=== PATIENT | male | born 1975 | race American Indian/Alaskan Native ===

== ENCOUNTER 2017-01-13 01:34 | Emergency (ER) | payer MEDICAID ==
[2017-01-13 01:43] VITALS: O2SAT 99
[2017-01-13] MEDS ORDERED: Sodium Chloride 0.9% 1,000 ML IV STA ×2 (02:07→02:37)
[2017-01-13 02:27] LABS: CHLORIDE 105 mmol/L (98-107); SODIUM 142 mmol/l (132-148)
[2017-01-13 02:28] LABS: POTASSIUM 3.6 MMOL/L (3.6-5.0)
[2017-01-13 02:30] LABS: ALB/GLOB RATIO 1.4 (1.0-2.1); ALKALINE PHOSPHATASE 62 U/L (38-126); ALT/SGPT 47 U/L (21-72); AST/SGOT 28 U/L (17-59); BILIRUBIN,TOTAL 0.7 mg/dl (0.2-1.3); BLOOD UREA NITROGEN 14 mg/dl (9-20); CARBON DIOXIDE 25 mmol/L (22-30); GFR AFRICAN-AMERICAN > 60; GLUCOSE,RANDOM 131 mg/dL (75-110); TOTAL PROTEIN 7.5 G/DL (6.3-8.2)
[2017-01-13 02:31] LABS: CALCIUM 9.3 mg/dL (8.4-10.2); LIPASE 71 U/L (23-300)
--- NOTE | 2017-01-13 02:31 | ED PDOC ---
HPI: Abdomen Time Seen by Provider: 01/13/17 01:47 Chief Complaint (Nursing): Abdominal Pain Chief Complaint (Provider): Abdominal Pain History Per: Patient History/Exam Limitations: no limitations Onset/Duration Of Symptoms: Days (Twenty-four hours) Outside of [place] travel?: No Current Symptoms Are (Timing): Still Present Severity: Mild Location Of Pain/Discomfort: Diffuse Quality Of Discomfort: Cramping Associated Symptoms: Nausea, Vomiting. denies: Fever, Chills, Diarrhea, Constipation Additional Complaint(s): 41 y/o male presenting to the ED with nausea, vomiting and abdominal pain. Patient states the symptoms began twenty-four hours ago and reports four episode of vomiting which was yellow colored and had no blood present. Patient describes the pain as cramping and states it is diffuse. He reports normal bowel movements, no fever, chills or past abdominal surgeries. Past Medical History Reviewed: Historical Data, Nursing Documentation, Vital Signs Vital Signs: Last Vital Signs Temp 98.3 F 01/13/17 01:40 Pulse 54 L 01/13/17 01:40 Resp 14 01/13/17 01:40 BP 127/75 01/13/17 01:40 Pulse Ox 99 01/13/17 05:18 - Medical History PMH: Back Problems - Family History Family History: States: Unknown Family Hx - Social History Current smoker - smoking cessation education provided: No Alcohol: None Drugs: Denies - Home Medications Home Medications: Ambulatory Orders Medication Instructions Recorded Dicyclomine [Bentyl] 10 mg PO QID #20 cap 01/13/17 Ibuprofen [Motrin Tab] 600 mg PO Q6 #30 tab 01/13/17 Ondansetron [Zofran] 4 mg PO Q8H #12 tab 01/13/17 - Allergies Allergies/Adverse Reactions: Allergies Allergy/AdvReac Type Severity Reaction Status Date / Time No Known Allergies Allergy Verified 01/13/17 01:40 Review of Systems ROS Statement: Except As Marked, All Systems Reviewed And Found Negative Constitutional: Negative for: Fever, Chills Gastrointestinal: Positive for: Vomiting, Abdominal Pain ((+)Diffuse). Negative for: Diarrhea, Constipation Physical Exam - Reviewed Nursing Documentation Reviewed: Yes Vital Signs Reviewed: Yes - Physical Exam Appears: Positive for: Non-toxic, Uncomfortable Head Exam: Positive for: ATRAUMATIC, NORMAL INSPECTION, NORMOCEPHALIC Skin: Positive for: Normal Color, Warm, Dry Cardiovascular/Chest: Positive for: Regular Rate, Rhythm. Negative for: Murmur Respiratory: Positive for: Normal Breath Sounds. Negative for: Wheezing, Respiratory Distress Gastrointestinal/Abdominal: Positive for: Soft. Negative for: Tenderness, Guarding, Rebound Neurologic/Psych: Positive for: Alert, Oriented. Negative for: Motor/Sensory Deficits - Laboratory Results Result Diagrams: 01/13/17 02:14 01/13/17 02:14 - ECG O2 Sat by Pulse Oximetry: 99 (RA) Pulse Ox Interpretation: Normal Medical Decision Making Medical Decision Making: Time: 205 Initial impression: Gastritis Initial plan: --CMP --LIPASE --CBC --DICYCLOMINE 20MG PO --SODIUM CHLORIDE 1,000ML IV 1,000 MLS/HR --ONDANSETRON 4MG IVP --URINALYSIS 0500: Discharge Instructions: Re-evaluation. Patient feels better. Discussed results and plan with patient who expresses understanding. Counseling was provided regarding the diagnosis and prognosis. All questions answered and there is agreement with the plan to discharge home with instructions. Patient stable for discharge. Return if symptoms persist or worsen. Scribe Attestation: Documented by Arina Jones, acting as a scribe for Tino Henriquez MD. Scribe Attestation: All medical record entries made by the Scribe were at my direction and personally dictated by me. I have reviewed the chart and agree that the record accurately reflects my personal performance of the history, physical exam, medical decision making, and the department course for this patient. I have also personally directed, reviewed, and agree with the discharge instructions and disposition. Disposition - Clinical Impression Clinical Impression: Abdominal cramps - Patient ED Disposition Is Patient to be Admitted: No - Disposition Referrals: [facility] [Outside] Disposition Time: 05:00 Condition: STABLE Prescriptions: Dicyclomine [Bentyl] 10 mg PO QID #20 cap Ibuprofen [Motrin Tab] 600 mg PO Q6 #30 tab Ondansetron [Zofran] 4 mg PO Q8H #12 tab Instructions: Acute Abdominal Pain (ED) Forms: [employer] (Belizean)
[2017-01-13 02:32] LABS: BASO % 0.3 % (0.0-2.0); EOS # 0.2 K/uL (0.0-0.7); EOS % 1.8 % (0.0-4.0); HEMATOCRIT 46.2 % (35.0-51.0); LYMPH # 2.3 K/uL (1.0-4.3); MEAN CELL VOLUME 91.2 fl (80.0-94.0); MEAN CORPUSCULAR HEMOGLOBIN 30.8 pg (27.0-31.0); MEAN CORPUSCULAR HGB CONC 33.8 g/dL (33.0-37.0); MEAN PLATELET VOLUME 11.5 fl (7.2-11.7); MONO # 0.9 K/uL (0.0-0.8); MONO % 7.3 % (0.0-10.0); NEUT # 9.3 K/uL (1.8-7.0); NEUT % 72.6 % (50.0-75.0); NRBC % 0.1 % (0.0-0.0); RED CELL DISTRIBUTION WIDTH 13.6 % (11.5-14.5); WHITE BLOOD COUNT 12.8 K/uL (4.8-10.8)
[2017-01-13 03:31] LABS: RBC URINE 8 /hpf (0-3); URINE BACTERIA RARE (<OCC); URINE BILIRUBIN NEGATIVE (NEGATIVE); URINE COLOR YELLOW (YELLOW); URINE GLUCOSE (UA) NEG (Normal); URINE KETONE 20 mg/dL (NEGATIVE); URINE LEUKOCYTE ESTERASE NEG Leu/uL (Negative); URINE PROTEIN 30 mg/dL (NEGATIVE); URINE UROBILINOGEN 0.2-1.0 mg/dL (0.2-1.0); WBC URINE 2 /hpf (0-5)
[2017-01-13 03:35] LABS: URINE BLOOD SMALL (NEGATIVE)
[2017-01-13 06:42] VITALS: BP 117/76; PULSE 86; RESP 17; TEMP 98.7
== END 2017-01-13 05:10 | disposition home or self-care (01) ==
LOC: H.ER 01:34
DX: K29.70 Gastritis, unspecified, without bleeding (principal)

== ENCOUNTER 2018-11-14 19:18 | Emergency (ER) | payer MEDICAID ==
[2018-11-14 19:44] VITALS: O2SAT 98
[2018-11-14] MEDS ORDERED: Sodium Chloride 0.9% 1,000 ML IV STA (19:52)
[2018-11-14 20:51] LABS: BASO # 0.1 K/uL (0.0-0.2); BASO % 0.6 % (0.0-2.0); EOS # 0.1 K/uL (0.0-0.7); EOS % 1.2 % (0.0-4.0); HEMOGLOBIN 15.9 g/dL (12.0-18.0); LYMPH # 1.7 K/uL (1.0-4.3); LYMPH % 16.9 % (20.0-40.0); MEAN CORPUSCULAR HEMOGLOBIN 31.3 pg (27.0-31.0); MEAN CORPUSCULAR HGB CONC 34.1 g/dL (33.0-37.0); MEAN PLATELET VOLUME 12.6 fl (7.2-11.7); MONO # 0.6 K/uL (0.0-0.8); MONO % 6.3 % (0.0-10.0); NEUT # 7.5 K/uL (1.8-7.0); NRBC % 0.1 % (0.0-0.0); RBC 5.09 Mil/uL (4.40-5.90)
[2018-11-14 21:04] LABS: ALB/GLOB RATIO 1.4 (1.0-2.1); ALBUMIN 4.5 g/dL (3.5-5.0); BLOOD UREA NITROGEN 14 mg/dl (9-20); GFR NON-AFRICAN AMERICAN > 60; LIPASE 71 U/L (23-300)
[2018-11-14 21:08] LABS: ALT/SGPT 49 U/L (21-72); AST/SGOT 45 U/L (17-59)
--- NOTE | 2018-11-14 21:21 | ED PDOC ---
HPI: Abdomen Time Seen by Provider: 11/14/18 19:51 Chief Complaint (Nursing): Abdominal Pain Chief Complaint (Provider): Abdominal Pain History Per: Patient History/Exam Limitations: no limitations Onset/Duration Of Symptoms: Hrs Additional Complaint(s): 43 year old male with chronic back pain presents to ED with abdominal pain and vomiting since about 10 am today. Patient reports multiple episodes of non bloody vomiting and is dry heaving now. He denies any diarrhea, fever, cough. Patient states he may have ate something that upset stomach. PMD: Ainsley Balderas Past Medical History Reviewed: Historical Data, Nursing Documentation, Vital Signs Vital Signs: Last Vital Signs Temp 98.3 F 11/14/18 19:42 Pulse 57 L 11/14/18 19:42 Resp 16 11/14/18 19:42 BP 135/89 11/14/18 19:42 Pulse Ox 98 11/14/18 19:42 Primary Care Provider: Ainsley Balderas - Medical History PMH: Back Problems - Surgical History Surgical History: No Surg Hx - Family History Family History: States: Unknown Family Hx - Social History Current smoker - smoking cessation education provided: No Alcohol: Occasional Drugs: Denies - Home Medications Home Medications: Ambulatory Orders Medication Instructions Recorded Dicyclomine [Bentyl] 10 mg PO QID #20 cap 01/13/17 Ibuprofen [Motrin Tab] 600 mg PO Q6 #30 tab 01/13/17 Ondansetron [Zofran] 4 mg PO Q8H #12 tab 01/13/17 Esomeprazole Magnesium [Nexium] 20 mg PO QAM #14 ecc 11/15/18 Ondansetron ODT [Zofran ODT] 4 mg PO Q6 PRN #8 odt 11/15/18 - Allergies Allergies/Adverse Reactions: Allergies Allergy/AdvReac Type Severity Reaction Status Date / Time No Known Allergies Allergy Verified 01/13/17 01:40 Review of Systems ROS Statement: Except As Marked, All Systems Reviewed And Found Negative Constitutional: Negative for: Fever Respiratory: Negative for: Cough Gastrointestinal: Positive for: Vomiting (non bloody, now dry heaving), Abdominal Pain. Negative for: Diarrhea Physical Exam - Reviewed Nursing Documentation Reviewed: Yes Vital Signs Reviewed: Yes - Physical Exam Appears: Positive for: No Acute Distress Head Exam: Positive for: ATRAUMATIC, NORMAL INSPECTION, NORMOCEPHALIC Skin: Positive for: Normal Color, Warm, Dry Eye Exam: Positive for: EOMI, Normal appearance, PERRL ENT: Positive for: Normal ENT Inspection Neck: Positive for: Normal, Painless ROM, Supple Cardiovascular/Chest: Positive for: Regular Rate, Rhythm. Negative for: Murmur Respiratory: Positive for: Normal Breath Sounds. Negative for: Respiratory Distress Gastrointestinal/Abdominal: Positive for: Tenderness (RUQ) Back: Positive for: Normal Inspection. Negative for: L CVA Tenderness, R CVA Tenderness, Vertebral Tenderness Extremity: Positive for: Normal ROM. Negative for: Pedal Edema, Deformity Neurological/Psych: Positive for: Awake, Alert, Oriented (x3). Negative for: Motor/Sensory Deficits - Laboratory Results Result Diagrams: 11/14/18 20:40 11/14/18 20:40 Lab Results: Total Bilirubin 0.6 mg/dl (0.2-1.3) 11/14/18 20:40 AST 45 U/L (17-59) 11/14/18 20:40 ALT 49 U/L (21-72) 11/14/18 20:40 Alkaline Phosphatase 51 U/L (38-126) 11/14/18 20:40 Total Protein 7.8 G/DL (6.3-8.2) 11/14/18 20:40 Albumin 4.5 g/dL (3.5-5.0) 11/14/18 20:40 Globulin 3.2 gm/dL (2.2-3.9) 11/14/18 20:40 Albumin/Globulin Ratio 1.4 (1.0-2.1) 11/14/18 20:40 Lipase 71 U/L (23-300) 11/14/18 20:40 - ECG O2 Sat by Pulse Oximetry: 98 (RA) Pulse Ox Interpretation: Normal Medical Decision Making Medical Decision Making: Time: 2035 Initial Impression: abdominal pain and vomiting Initial Plan: --U-dip --Pepcid --Zofran --IV Fluids --Urinalysis --US Gallbladder 00:46 US Findings: Hepatomegaly measuring 17.9 cm. Normal gallbladder wall thickness measuring 1.5 mm. No evidence of cholelithiasis or acute cholecystitis. Negative sonographic Monzon. Nondilated common bile duct measuring 3.4 mm. Unremarkable pancreas. Unremarkable IVC. Nonaneurysmal aorta measuring 1.8 cm. Unremarkable right kidney measuring 11.5x5x5.7 cm. Impression: Unremarkable exam. 01:06 Patient reports improvement in symptoms and is stable for discharge. Diagnosis is gastritis. Scribe Attestation: Documented by Alex Lopez acting as a scribe for Duy Parsons MD. Provider Scribe Attestation: All medical record entries made by the Scribe were at my direction and personally dictated by me. I have reviewed the chart and agree that the record accurately reflects my personal performance of the history, physical exam, medical decision making, and the department course for this patient. I have also personally directed, reviewed, and agree with the discharge instructions and disposition. Disposition - Clinical Impression Clinical Impression: Gastritis - Disposition Disposition: Routine/Home Disposition Time: 01:06 Condition: STABLE Additional Instructions: ZHOU SHELDON, thank you for letting us take care of you today. Your provider was Duy Parsons MD and you were treated for ABD PAIN, VOMITING. The emergency medical care you received today was directed at your acute symptoms. If you were prescribed any medication, please fill it and take as directed. It may take several days for your symptoms to resolve. Return to the Emergency Department if your symptoms worsen, do not improve, or if you have any other problems. Please contact your doctor or call one of the physicians/clinics you have been referred to that are listed on the Patient Visit Information form that is included in your discharge packet. Bring any paperwork you were given at [facility] with you along with any medications you are taking to your follow up visit. Our treatment cannot replace ongoing medical care by a primary care provider outside of the emergency department. Thank you for allowing the [facility] team to be part of your care today. If you had an X-Ray or CT scan: A Radiologist will review the ED reading if any change in treatment is needed we will contact you. If you had a blood, urine, or wound culture: It will take several days for the results, if any change in treatment is needed we will contact you. If you had an STI test: It will take 48 hours for the results. Please call after 1 week if you have not heard back. Prescriptions: Esomeprazole Magnesium [Nexium] 20 mg PO QAM #14 ecc Ondansetron ODT [Zofran ODT] 4 mg PO Q6 PRN #8 odt PRN Reason: Nausea/Vomiting Instructions: Gastritis Forms: [employer] (Danish)
[2018-11-14 22:34] LABS: SQUAMOUS EPITHIAL < 1 /hpf (0-5); URINE BILIRUBIN NEGATIVE (NEGATIVE); URINE BLOOD NEGATIVE (NEGATIVE); URINE CLARITY SLIGHTY-CLOUDY (Clear); URINE COLOR YELLOW (YELLOW); URINE GLUCOSE (UA) NEG (NEGATIVE); URINE LEUKOCYTE ESTERASE NEG Leu/uL (Negative); URINE PROTEIN 30 mg/dL (NEGATIVE); URINE UROBILINOGEN 0.2-1.0 mg/dL (0.2-1.0)
[2018-11-14 23:06] VITALS: RESP 18
[2018-11-15 01:25] VITALS: BP 130/78; PULSE 76; TEMP 98.2
--- NOTE | 2018-11-15 12:25 | US ---
Date of service: 11/14/2018 HISTORY: RUQ pain COMPARISON: None. TECHNIQUE: Sonographic evaluation of the right upper quadrant of the abdomen. FINDINGS: LIVER: Measures 17.9 cm in length. Patent portal and hepatic venous systems. Portal venous flow: Hepatopetal. echogenicity of the liver parenchyma. No mass. No intrahepatic bile duct dilatation. GALLBLADDER: Unremarkable. No gallstones. COMMON BILE DUCT: Measures 3.4 mm. No stones. No dilatation. PANCREAS: Unremarkable as visualized. No mass. No ductal dilatation. RIGHT KIDNEY: Measures 5 x 5.7 x 11.5 cm in length. Normal echogenicity. No calculus, mass, or hydronephrosis. AORTA: No aneurysmal dilatation. IVC: Unremarkable. OTHER FINDINGS: None . IMPRESSION: Unremarkable study. Concordant findings (preliminary report) provided by [facility].
== END 2018-11-15 01:23 | disposition home or self-care (01) ==
LOC: H.ER 19:18
DX: G89.29 Other chronic pain (principal); M54.9 Dorsalgia, unspecified; R10.9 Unspecified abdominal pain; K29.70 Gastritis, unspecified, without bleeding; Z79.899 Other long term (current) drug therapy
CPT/HCPCS: 76705; 80053; 81003; 83690; 85025; 96361; 96374; 96375; 96376; 99283; J1885; J2405; J7030